=== PATIENT | female | born 1945 | race Caucasian/White ===

== ENCOUNTER → 2017-05-23 | Outpatient (CLI) | payer MEDICARE ==
[~2017-05-23] MED LIST: ACLI400A2 INH; ALBU8.5H5 INH; ASPI-650 PO; ATOR20TA PO; BENA10TA2 PO; BISA10SU2 PR; CIPR500T87 PO; DIAZ5TAB PO; GABA600T2 PO; GUAI600T22 PO; HYDR-3144 PO; IPRA3AMP NPPB; MAGN400O4 PO; METO25TA91 PO; OXYC-302 PO; OXYGEN INH; SENN1TAB7 PO; SERT100T5 PO; SODI45SP4 NAS; TIOT18CA INH; TIZA2TAB PO; TRAZ100T15 PO; [UNRECOGNIZED DRUG - REMARK]
== END | disposition home or self-care (01) ==
LOC: CVU 08:53
PROVIDERS: ATTEND Internal Medicine Cardiovascular Disease
DX: I65.23 Occlusion and stenosis of bilateral carotid arteries (principal); F17.200 Nicotine dependence, unspecified, uncomplicated; I10 Essential (primary) hypertension; J44.9 Chronic obstructive pulmonary disease, unspecified; Z99.81 Dependence on supplemental oxygen
CPT/HCPCS: 93880

== ENCOUNTER 2017-05-30 10:04 | Inpatient (IN) | payer MEDICARE ==
[~2017-05-30] VITALS: Ht 154.9 cm; Wt 46.1 kg
[2017-05-30] MEDS ORDERED: ASPI-770 PO (10:37)
[2017-05-30] MEDS ORDERED: HYDR-3307 PO (10:39)
[2017-05-30] MEDS ORDERED: MUPI15CR9 TP (10:40)
[2017-05-30] MEDS ORDERED: LEVO75TA5 PO (10:40)
[2017-05-30] MEDS ORDERED: BENA10TA2 PO (10:41)
[2017-05-30] MEDS ORDERED: TRAZ100T15 PO (10:41)
[2017-05-30] MEDS ORDERED: AMLO5TAB2 PO (10:42)
[2017-05-30] MEDS ORDERED: CHLO25TA PO (10:42)
[2017-05-30] MEDS ORDERED: FLUT1DIS IH (10:43)
[2017-05-30] MEDS ORDERED: BACL-19 PO (10:43)
[2017-05-30] MEDS ORDERED: SODIUM CHLORIDE FLUSH 10ML SYR IVF ONE (11:00)
[2017-05-30] MEDS ORDERED: SODIUM CHLORIDE 0.9% 1,000ML IVBOLUS ONE ×2 (11:00→17:00)
[2017-05-30] MEDS ORDERED: MECLIZINE CHEWABLE 25 MG TAB PO ONE (11:00)
[2017-05-30] MEDS ORDERED: MECLIZINE CHEWABLE 25 MG TAB ONE (11:14)
[2017-05-30 11:19] LABS: HEMATOCRIT 49.3 % (34.6-47.8); HEMOGLOBIN 15.9 g/dL (11.7-16.4); WHITE BLOOD COUNT 6.6 x10^3/uL (3.4-10)
[2017-05-30 11:32] LABS: ASPARTATE AMINO TRANSFERASE 22 U/L (15-37); BLOOD UREA NITROGEN 29 mg/dL (7-18)
[2017-05-30 11:44] LABS: IS PT STATUS REG ER OR PRE ER? YES
[2017-05-30] MEDS ORDERED: NALOXONE 0.4 MG/ML, 1ML IVPush ONE (13:00)
[2017-05-30] MEDS ORDERED: NALOXONE 0.4 MG/ML, 1ML ONE (13:33)
[2017-05-30] MEDS ORDERED: PIPERACILLIN/TAZO/PMX 3.375GM 50 ML IVPB ONE (14:00)
[2017-05-30] MEDS ORDERED: PIPERACILLIN/TAZO/PMX 3.375GM 50 ML ONE (15:04)
[2017-05-30 18:30] VITALS: BP 132/83
[2017-05-30] MEDS ORDERED: ONDANSETRON ODT 4 MG PO PRN (18:30)
[2017-05-30] MEDS ORDERED: PHARMACY MAY ADJ FOR RENAL FX MC PRN (18:30)
[2017-05-30] MEDS ORDERED: LEVOFLOXACIN/PMX 500MG/100ML 100 ML IV SCH (18:30)
[2017-05-30] MEDS ORDERED: BISACODYL 10 MG SUPP PR PRN (18:30)
[2017-05-30] MEDS ORDERED: DOCUSATE 100 MG CAPSULE PO PRN (18:30)
[2017-05-30] MEDS ORDERED: POLYETHYLENE GLYCOL 17 GM PACKET PO PRN (18:30)
[2017-05-30] MEDS ORDERED: MECLIZINE 12.5 MG TABLET PO PRN (18:30)
[2017-05-30] MEDS ORDERED: ENOXAPARIN 30 MG/0.3 ML SQ SCH (19:00)
[2017-05-30] MEDS: NICOTINE 14MG/24 HR PATCH.TD24 TD SCH (19:49)
[2017-05-30] MEDS: SODIUM CHLORIDE 0.9% 1,000 ML IV SCH (19:49)
[2017-05-30] MEDS: ALBUTEROL/IPRATROPIUM 2.5MG/0.5MG, 3 ML NPPB SCH (20:00)
[2017-05-30] MEDS ORDERED: LEVOFLOXACIN/PMX 750MG/150ML 150 ML IV SCH (20:00)
[2017-05-30 20:08] VITALS: BP 111/56
[2017-05-30] MEDS: AMLODIPINE 5 MG TABLET PO SCH (22:35)
[2017-05-30] MEDS: BACLOFEN 10 MG TABLET PO SCH (22:35)
[2017-05-30] MEDS ORDERED: ALBUTEROL/IPRATROPIUM 2.5MG/0.5MG, 3 ML NPPB PRN (23:30)
[2017-05-31 00:30] VITALS: BP 111/62
[2017-05-31] MEDS: HYDROcodone/APAP 10/325 MG TABLET PO PRN ×3 (00:44→23:08)
[2017-05-31] MEDS: LEVOTHYROXINE 75 MCG TABLET PO SCH (05:44)
[2017-05-31 06:04] LABS: HEMATOCRIT 43.6 % (34.6-47.8); HEMOGLOBIN 14.1 g/dL (11.7-16.4); WHITE BLOOD COUNT 4.4 x10^3/uL (3.4-10)
[2017-05-31 06:10] LABS: ASPARTATE AMINO TRANSFERASE 14 U/L (15-37); BLOOD UREA NITROGEN 19 mg/dL (7-18)
[2017-05-31] MEDS: ALBUTEROL/IPRATROPIUM 2.5MG/0.5MG, 3 ML NPPB SCH ×6 (07:10→20:53)
[2017-05-31 07:33] VITALS: BP 111/58
[2017-05-31] MEDS: SENNA/DOCUSATE TABLET PO SCH (09:00)
[2017-05-31] MEDS: BACLOFEN 10 MG TABLET PO SCH ×3 (09:28→20:04)
[2017-05-31] MEDS: SERTRALINE 100MG TABLET PO SCH (09:28)
[2017-05-31] MEDS: ASPIRIN 81 MG TABLET CHEW PO SCH (09:28)
[2017-05-31] MEDS: AMLODIPINE 5 MG TABLET PO SCH ×2 (09:28→20:04)
[2017-05-31 11:24] LABS: IS PT STATUS REG ER OR PRE ER? NO
[2017-05-31 11:31] VITALS: BP 105/61
[2017-05-31 12:08] VITALS: BP 112/58
[2017-05-31] MEDS: SODIUM CHLORIDE 0.9% 1,000 ML IV SCH ×2 (14:47→20:04)
[2017-05-31] MEDS: AZITHROMYCIN 500 MG in SODIUM CHLORIDE 0.9% 250 ML IV SCH (14:47)
[2017-05-31 17:01] LABS: IS PT STATUS REG ER OR PRE ER? NO
[2017-05-31] MEDS: ENOXAPARIN 40 MG/0.4 ML SQ SCH (17:48)
[2017-05-31] MEDS: NICOTINE 14MG/24 HR PATCH.TD24 TD SCH (17:48)
[2017-05-31 20:00] VITALS: BP 123/55
[2017-05-31 22:54] LABS: IS PT STATUS REG ER OR PRE ER? NO
[2017-06-01 01:21] VITALS: BP 135/63
[2017-06-01 05:01] LABS: HEMATOCRIT 42.6 % (34.6-47.8); HEMOGLOBIN 13.8 g/dL (11.7-16.4); WHITE BLOOD COUNT 4.7 x10^3/uL (3.4-10)
[2017-06-01 05:16] LABS: BLOOD UREA NITROGEN 15 mg/dL (7-18)
[2017-06-01] MEDS: LEVOTHYROXINE 75 MCG TABLET PO SCH (05:47)
[2017-06-01] MEDS: ALBUTEROL/IPRATROPIUM 2.5MG/0.5MG, 3 ML NPPB SCH ×4 (07:03→19:26)
[2017-06-01] MEDS: SODIUM CHLORIDE 0.9% 1,000 ML IV SCH ×2 (08:24→23:58)
[2017-06-01] MEDS: ASPIRIN 81 MG TABLET CHEW PO SCH (08:25)
[2017-06-01] MEDS: AMLODIPINE 5 MG TABLET PO SCH ×2 (08:25→20:44)
[2017-06-01] MEDS: BACLOFEN 10 MG TABLET PO SCH ×3 (08:25→20:44)
[2017-06-01] MEDS: SERTRALINE 100MG TABLET PO SCH (08:25)
[2017-06-01 08:26] VITALS: BP 139/63
[2017-06-01] MEDS: SENNA/DOCUSATE TABLET PO SCH (08:26)
[2017-06-01] MEDS: HYDROcodone/APAP 10/325 MG TABLET PO PRN ×2 (08:56→20:44)
[2017-06-01] MEDS: AZITHROMYCIN 500 MG in SODIUM CHLORIDE 0.9% 250 ML IV SCH (12:17)
[2017-06-01 14:02] VITALS: BP 134/68
[2017-06-01] MEDS: NICOTINE 14MG/24 HR PATCH.TD24 TD SCH (17:43)
[2017-06-01] MEDS: ENOXAPARIN 40 MG/0.4 ML SQ SCH ×3 (17:44→17:46)
[2017-06-01 18:27] VITALS: BP 142/62
[2017-06-02 01:39] VITALS: BP 155/72
[2017-06-02 05:37] LABS: HEMOGLOBIN 15.4 g/dL (11.7-16.4); WHITE BLOOD COUNT 4.8 x10^3/uL (3.4-10)
[2017-06-02 05:46] LABS: BLOOD UREA NITROGEN 13 mg/dL (7-18)
[2017-06-02] MEDS: LEVOTHYROXINE 75 MCG TABLET PO SCH (05:56)
[2017-06-02] MEDS: ALBUTEROL/IPRATROPIUM 2.5MG/0.5MG, 3 ML NPPB SCH ×4 (07:00→19:40)
[2017-06-02 07:52] VITALS: BP 138/69
[2017-06-02] MEDS: ASPIRIN 81 MG TABLET CHEW PO SCH (08:40)
[2017-06-02] MEDS: SENNA/DOCUSATE TABLET PO SCH (08:40)
[2017-06-02] MEDS: SERTRALINE 100MG TABLET PO SCH (08:40)
[2017-06-02] MEDS: BACLOFEN 10 MG TABLET PO SCH ×3 (08:40→20:51)
[2017-06-02] MEDS: AMLODIPINE 5 MG TABLET PO SCH ×2 (08:40→20:49)
[2017-06-02] MEDS: HYDROcodone/APAP 10/325 MG TABLET PO PRN ×2 (09:10→20:49)
[2017-06-02] MEDS: AZITHROMYCIN 500 MG in SODIUM CHLORIDE 0.9% 250 ML IV SCH (11:21)
[2017-06-02] MEDS: SODIUM CHLORIDE 0.9% 1,000 ML IV SCH (13:33)
[2017-06-02 14:30] VITALS: BP 121/65
[2017-06-02] MEDS: ENOXAPARIN 40 MG/0.4 ML SQ SCH (17:25)
[2017-06-02] MEDS: NICOTINE 14MG/24 HR PATCH.TD24 TD SCH (17:28)
[2017-06-02 19:42] VITALS: BP 149/64
[2017-06-02 20:43] VITALS: BP 133/66
[2017-06-03 02:04] VITALS: BP 136/65
[2017-06-03] MEDS: SODIUM CHLORIDE 0.9% 1,000 ML IV SCH (02:52)
[2017-06-03] MEDS: LEVOTHYROXINE 75 MCG TABLET PO SCH (06:33)
[2017-06-03] MEDS: ALBUTEROL/IPRATROPIUM 2.5MG/0.5MG, 3 ML NPPB SCH ×2 (07:35→11:59)
[2017-06-03 08:18] VITALS: BP 136/67
[2017-06-03] MEDS: SERTRALINE 100MG TABLET PO SCH (08:51)
[2017-06-03] MEDS: AMLODIPINE 5 MG TABLET PO SCH (08:51)
[2017-06-03] MEDS: BACLOFEN 10 MG TABLET PO SCH (08:51)
[2017-06-03] MEDS: ASPIRIN 81 MG TABLET CHEW PO SCH (08:51)
[2017-06-03] MEDS: SENNA/DOCUSATE TABLET PO SCH (08:51)
[2017-06-03] MEDS: HYDROcodone/APAP 10/325 MG TABLET PO PRN (08:58)
[2017-06-03] MEDS ORDERED: MECL12.52 PO (09:12)
[2017-06-03] MEDS ORDERED: AZIT500T77 PO (09:12)
[2017-06-03] MEDS ORDERED: LACT1CAP24 PO (09:12)
[2017-06-03] MEDS ORDERED: AZITHROMYCIN 500 MG TABLET PO SCH (11:30)
== END 2017-06-03 13:13 | disposition home or self-care (01) | DRG 682 ==
LOC: ED 12:14 → EDIP 13:43 → 4NOR 18:25 → 5SO 05-31 11:36 → 4WST 05-31 18:43
PROVIDERS: ADMIT Internal Medicine; ATTEND Internal Medicine
DX: N17.0 Acute kidney failure with tubular necrosis (principal); J15.9 Unspecified bacterial pneumonia; E43 Unspecified severe protein-calorie malnutrition; J96.11 Chronic respiratory failure with hypoxia; I95.89 Other hypotension; D69.6 Thrombocytopenia, unspecified; E87.1 Hypo-osmolality and hyponatremia; J44.0 Chronic obstructive pulmonary disease with (acute) lower respiratory infection; Z99.81 Dependence on supplemental oxygen; F11.20 Opioid dependence, uncomplicated; Z68.1 Body mass index [BMI] 19.9 or less, adult; H50.9 Unspecified strabismus; E03.9 Hypothyroidism, unspecified; F17.210 Nicotine dependence, cigarettes, uncomplicated; G47.33 Obstructive sleep apnea (adult) (pediatric); I10 Essential (primary) hypertension; G89.29 Other chronic pain; M54.2 Cervicalgia; M54.9 Dorsalgia, unspecified; Z79.899 Other long term (current) drug therapy; I25.2 Old myocardial infarction; Z79.82 Long term (current) use of aspirin; Z88.1 Allergy status to other antibiotic agents; Z88.2 Allergy status to sulfonamides; Z88.5 Allergy status to narcotic agent
CPT/HCPCS: 36415; 70551; 71010; 80048; 80053; 81003; 82962; 83605; 83735; 84100; 84145; 84443; 84484; 85025; 87040; 87324; 93005; 93306; 94640; 96361; 96374; 96375; J0456; J1650; J1956; J2310; J2543; J7620; J7030; J7050

== ENCOUNTER → 2017-07-11 | Outpatient (CLI) | payer MEDICARE ==
[~2017-07-11] MED LIST changes: +AMLO5TAB2 PO; +ASPI-770 PO; +AZIT500T5 PO; +BACL-19 PO; +CHLO25TA PO; +FLUT1DIS IH; -GUAI600T22 PO; +GUAI600T31 PO; -HYDR-3144 PO; +HYDR-3245 PO; +HYDR-3307 PO; +LACT1CAP24 PO; +LEVO75TA5 PO; -MAGN400O4 PO; +MAGN400O7 PO; +MECL12.52 PO; +MUPI15CR9 TP
== END | disposition home or self-care (01) ==
LOC: CFH 10:01
PROVIDERS: ATTEND Internal Medicine Cardiovascular Disease
DX: I08.2 Rheumatic disorders of both aortic and tricuspid valves (principal); I10 Essential (primary) hypertension; F17.210 Nicotine dependence, cigarettes, uncomplicated
CPT/HCPCS: 93306

== ENCOUNTER → 2018-01-09 | Outpatient (CLI) | payer MEDICARE ==
[~2018-01-09] MED LIST changes: +REGADENOSON 0.4 MG/5 ML SYRINGE ONE
== END | disposition home or self-care (01) ==
LOC: CFH 12:19
PROVIDERS: ATTEND Internal Medicine Cardiovascular Disease
DX: R93.1 Abnormal findings on diagnostic imaging of heart and coronary circulation (principal); R06.02 Shortness of breath
CPT/HCPCS: 78452; 93017; A9502; J2785

== ENCOUNTER → 2019-02-18 | Outpatient (CLI) | payer MEDICARE ==
[~2019-02-18] MED LIST changes: +AMLO-150 PO; -AMLO5TAB2 PO; -ASPI-770 PO; +ASPI81TA59 PO; -BENA10TA2 PO; +BENA10TA4 PO; -GABA600T2 PO; +GABA600T7 PO; -IPRA3AMP NPPB; +IPRA3AMP30 NPPB; -REGADENOSON 0.4 MG/5 ML SYRINGE ONE; +SENN-177 PO; -SENN1TAB7 PO; +SERT100T32 PO; -SERT100T5 PO; +TRAZ-137 PO; -TRAZ100T15 PO
== END | disposition home or self-care (01) ==
LOC: CFH 15:24
PROVIDERS: ATTEND Internal Medicine Cardiovascular Disease
DX: I08.8 Other rheumatic multiple valve diseases (principal); I31.3 Pericardial effusion (noninflammatory); I11.0 Hypertensive heart disease with heart failure; I50.30 Unspecified diastolic (congestive) heart failure; J44.9 Chronic obstructive pulmonary disease, unspecified; F17.200 Nicotine dependence, unspecified, uncomplicated
CPT/HCPCS: 93306